=== PATIENT | male | born 1975 ===

== ENCOUNTER 2018-03-19 13:15 | Emergency (ER) | payer OTHER, SELFPAY ==
[~2018-03-19 13:15] MED LIST: ISOVUE-370 76%-LOCM 1 ML ONE
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
== END 2018-03-19 14:48 | disposition home or self-care (01) ==
LOC: ERS 13:15
DX: S20.211A Contusion of right front wall of thorax, initial encounter (principal); E78.5 Hyperlipidemia, unspecified; V89.2XXA Person injured in unspecified motor-vehicle accident, traffic, initial encounter
CPT/HCPCS: 70450; 71260; 72125; 74177